=== PATIENT | female | born 2000 | race Caucasian/White ===

== ENCOUNTER 2024-02-27 05:15 | Emergency (ER) | payer MEDICAID ==
[~2024-02-27] VITALS: Ht 154.9 cm; Wt 50.0 kg
[2024-02-27 05:20] VITALS: BP 112/51; PULSE 68; TEMP 98; O2SAT 99
[2024-02-27] MEDS ORDERED: ACET-2708 MT (05:33)
[2024-02-27] MEDS: ACETAMINOPHEN 325MG TABLET PO ONE (05:45)
[2024-02-27 05:50] VITALS: RESP 16
== END 2024-02-27 06:27 ==
LOC: ER 05:15
DX: M79.10 Myalgia, unspecified site (principal); V49.40XA Driver injured in collision with unspecified motor vehicles in traffic accident, initial encounter; Y93.89 Activity, other specified; Y92.89 Other specified places as the place of occurrence of the external cause; Y99.8 Other external cause status
CPT/HCPCS: 99283